=== PATIENT | male | born 1980 | race Caucasian/White ===

== ENCOUNTER 2017-12-24 11:25 | Emergency (ER) | payer MEDICAID ==
[2017-12-24 11:30] VITALS: BP 146/95
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
[2017-12-24] MEDS ORDERED: MECLIZINE 12.5 MG TABLET PO STA (13:51)
[2017-12-24] MEDS ORDERED: AMOXICILLIN 250 MG CAPSULE PO STA (13:51)
[2017-12-24] MEDS ORDERED: DEXAMETHASONE 10 MG/ML VIAL PO STA (13:51)
== END 2017-12-24 14:13 | disposition home or self-care (01) ==
LOC: ED 11:25
DX: H66.92 Otitis media, unspecified, left ear (principal)
CPT/HCPCS: 99283; A9270

== ENCOUNTER 2017-12-25 03:24 | Emergency (ER) | payer MEDICAID ==
[2017-12-25 03:35] VITALS: BP 157/97
[2017-12-25] MEDS ORDERED: HYDROcod/ACET 5/325 Prepack 6 PO STA (03:54)
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
== END 2017-12-25 04:05 | disposition home or self-care (01) ==
LOC: ED 03:24
DX: S02.5XXA Fracture of tooth (traumatic), initial encounter for closed fracture (principal); K08.89 Other specified disorders of teeth and supporting structures
CPT/HCPCS: 99283

== ENCOUNTER 2019-02-23 11:58 | Outpatient (CLI) | payer MEDICAID ==
--- NOTE | 2019-02-23 21:49 | MRI Report ---
Reason: SCIATICA Procedure Date: 02/23/2019 Accession Number: [id number] / [id number] Procedure: MRI - Lumbar Spine W/O CPT Code: FULL RESULT: EXAM: MRI LUMBAR SPINE WITHOUT CONTRAST EXAM DATE: 02/23/2019 12:42 PM. CLINICAL HISTORY: Sciatica. COMPARISON: None. TECHNIQUE: Multiplanar, multisequence T1-weighted and fluid-sensitive sequences of the lumbar spine from T12 to S1 without contrast. Other: None. FINDINGS: Spinal Canal: The conus terminates at L1. The conus medullaris and cauda equina are unremarkable. Alignment: No scoliosis or spondylolisthesis. Bone Marrow: Five [id number] lumbar vertebral bodies are assumed. No gross fractures or bone lesions. No bone marrow replacement. Disk Levels/Facets: T11-T12: Unremarkable. T12-L1: Unremarkable. L1-L2: Unremarkable. L2-L3: Unremarkable. L3-L4: A right foraminal area protrusion causes moderate right foraminal narrowing. There is mass effect on the right L3 nerve root, which is pushed posteriorly within the neural foramina (series 601, image 20). L4-L5: A central posterior disk protrusion projects inferiorly. It measures 1.4 x 0.7 x 1.6 cm. It causes moderate spinal canal, moderate left subarticular zone, and mild bilateral foraminal narrowing. The left L5 nerve root is compressed in the left subarticular zone. L5-S1: The disk is mildly desiccated with moderate height loss. A focal central disk protrusion measures 1.3 x 1.3 x 1.1 cm. This combined with moderate facet hypertrophy causes mild spinal canal, moderate right foraminal and mild left foraminal narrowing. Musculature: Normal. No edema or fatty atrophy. Other: The partially visualized retroperitoneum is unremarkable. IMPRESSION: 1. Moderate right foraminal narrowing at L3-L4 due to disk protrusion. There is mass effect on the right L3 nerve root. 2. Moderate spinal canal, moderate left subarticular zone, and mild bilateral foraminal narrowing at L4-L5 due to disk protrusion. There is mass effect in the left L5 nerve root. 3. Mild spinal canal, moderate right foraminal, and mild left foraminal narrowing at L5-S1 due to disk and posterior element degenerative changes. Comment: The following findings are so common in adults without low back pain that while we report their presence, they must be interpreted with caution and in the context of the clinical situation. (Reference Chrissk et al, Spine 2001) Prevalence of findings in patients without low back pain: Disk degeneration (any evidence): 92% Disk desiccation/T2 signal loss: 83% Disk height loss: 56% Disk bulge: 64% Disk protrusion: 32% Annular tear/high intensity zone: 38% RADIA
== END 2019-02-23 11:59 | disposition home or self-care (01) ==
LOC: DI 11:58
PROVIDERS: ATTEND Physician Assistant Medical
DX: M51.16 Intervertebral disc disorders with radiculopathy, lumbar region (principal)
CPT/HCPCS: 72148

== ENCOUNTER 2019-12-08 17:18 | Emergency (ER) | payer MEDICAID ==
[2019-12-08 18:07] LABS: BASOPHILS # (AUTO) 0.1 10^3/uL (0.0-0.1); BASOPHILS % (AUTO) 1.1 %; EOSINOPHILS # (AUTO) 0.1 10^3/uL (0.0-0.7); EOSINOPHILS % (AUTO) 1.5 %; HGB - HEMOGLOBIN 15.7 g/dL (14.0-18.0); LYMPHOCYTES # (AUTO) 2.9 10^3/uL (1.5-3.5); LYMPHOCYTES % (AUTO) 38.3 %; MEAN CORPUSCULAR HEMOGLOBIN 30.1 pg (27.0-31.0); MEAN CORPUSCULAR HGB CONC 32.9 g/dL (32.0-36.0); MEAN CORPUSCULAR VOLUME 91.6 fL (80.0-94.0); MEAN PLATELET VOLUME 11.3 fL (7.4-11.4); MONOCYTES # (AUTO) 0.7 10^3/uL (0.0-1.0); MONOCYTES % (AUTO) 9.1 %; NEUTROPHILS # (AUTO) 3.7 10^3/uL (1.5-6.6); NEUTROPHILS % (AUTO) 49.3 %; PLT - PLATELET COUNT 226 10^3/uL (130-450); RED BLOOD COUNT 5.21 10^6/uL (4.70-6.10); WHITE BLOOD COUNT 7.4 x10^3/uL (4.8-10.8)
--- NOTE | 2019-12-08 18:07 | ED Physician Documentation ---
PD HPI CHEST PAIN - Stated complaint Stated Complaint: CP/NO VOM OR HEADACHE - Chief complaint Chief Complaint: Cardiac - History obtained from History obtained from: Patient, Family - History of Present Illness Timing - onset: How many days ago (3) Timing - duration: Days (3) Timing - details: Gradual onset Pain level max: 3 Pain level now: 2 Quality: Pressure Location: Left chest Radiation: No: Jaw, Neck, Back, Abdominal, Left upper extremity, Right upper extremity Improved by: Nothing Worsened by: Movement, Palpation Associated symptoms: Cough. No: Shortness of air, Diaphoresis, Nausea, Vomiting, Feeling faint / dizzy, General Weakness, Palpitations - Additional information Additional information: 39-year-old male presents to the emergency department stating he has had several viral illnesses recently with coughing and congestion. 3 days ago started and noticed a dull ache in the left side of his chest. This is been there constantly. Worse with movement, palpation, breathing, coughing. Patient states that he has chronic tachycardia. No recent surgeries. No recent travel. No history of acute coronary syndrome. He saw his doctor today who sent him here for evaluation. Patient does not have any history of cardiac stress test either. Does not smoke. Review of Systems Constitutional: denies: Fever Nose: denies: Rhinorrhea / runny nose, Congestion Cardiac: denies: Palpitations, Calf pain GI: denies: Vomiting Skin: denies: Rash Musculoskeletal: denies: Neck pain, Back pain Neurologic: denies: Focal weakness, Syncope, Headache PD PAST MEDICAL HISTORY - Past Medical History Past Medical History: Yes Cardiovascular: None Respiratory: None Neuro: None Endocrine/Autoimmune: None GI: None : None HEENT: None Psych: Depression Musculoskeletal: Chronic back pain Derm: None - Past Surgical History Past Surgical History: Yes Ortho: Spine surgery - Present Medications Home Medications: Ambulatory Orders Medication Instructions Recorded Confirmed Amoxicillin 500 mg PO TID #20 capsule 12/24/17 Meclizine [Antivert] 25 mg PO Q6H PRN #30 tablet 12/24/17 Tramadol HCl 50 mg PO Q6H PRN #20 tablet 12/24/17 dexAMETHasone [Decadron] 4 mg PO DAILY #5 tablet 12/24/17 - Allergies Allergies/Adverse Reactions: Allergies Allergy/AdvReac Type Severity Reaction Status Date / Time No Known Drug Allergies Allergy Verified 12/08/19 17:26 - Social History Does the pt smoke?: No Smoking Status: Never smoker Does the pt drink ETOH?: No Does the pt have substance abuse?: No - Immunizations Immunizations are current?: Yes - POLST Patient has POLST: No PD ED PE NORMAL - Vitals Vital signs reviewed: Yes - General General: Alert and oriented X 3, No acute distress, Well developed/nourished - HEENT HEENT: Moist mucous membranes - Neck Neck: Supple, no meningeal sign - Cardiac Cardiac: RRR, Strong equal pulses - Respiratory Respiratory: No respiratory distress, Clear bilaterally, Other (Tender to palpation over the left chest wall, this reproduces his pain. No crepitus.) - Abdomen Abdomen: Soft, Non tender, Non distended - Derm Derm: Warm and dry - Extremities Extremities: No edema, No calf tenderness / cord - Neuro Neuro: Alert and oriented X 3, No motor deficit, No sensory deficit - Psych Psych: Normal mood, Normal affect Results - Vitals Vitals: Vital Signs - 24 hr 12/08/19 12/08/19 12/08/19 17:23 17:36 19:22 Temperature 35.9 C L 36.8 C Heart Rate 117 H 90 Respiratory 20 18 Rate Blood Pressure 165/109 H 153/103 H Blood Pressure 142/101 H [Right] O2 Saturation 95 97 Oxygen O2 Source Room air - EKG (time done) 1723 Rate: Rate (enter#) (116) Rhythm: Sinus tachycardia [place]: Normal Intervals: Normal [place] QRS: Normal Ischemia: Normal ST segments, Q waves (V1-2) - Labs Labs: Laboratory Tests 12/08/19 12/08/19 12/08/19 17:57 17:57 17:57 WBC 7.4 RBC 5.21 Hgb 15.7 Hct 47.7 MCV 91.6 MCH 30.1 MCHC 32.9 RDW 13.0 Plt Count 226 MPV 11.3 Neut # (Auto) 3.7 Lymph # (Auto) 2.9 [place] # (Auto) 0.7 Eos # (Auto) 0.1 Baso # (Auto) 0.1 Absolute Nucleated RBC 0.00 Nucleated RBC % 0.0 D-Dimer Sodium 139 Potassium 3.9 Chloride 102 Carbon Dioxide 27 Anion Gap 10.0 BUN 13 Creatinine 0.9 Estimated GFR (MDRD) 94 Glucose 116 H Calcium 9.2 Total Bilirubin 0.6 AST 29 ALT 57 Alkaline Phosphatase 65 Troponin I High Sens 3.9 Total Protein 7.6 Albumin 4.3 Globulin 3.3 Albumin/Globulin Ratio 1.3 Lipase 43 12/08/19 17:57 WBC RBC Hgb Hct MCV MCH MCHC RDW Plt Count MPV Neut # (Auto) Lymph # (Auto) [place] # (Auto) Eos # (Auto) Baso # (Auto) Absolute Nucleated RBC Nucleated RBC % D-Dimer 345.0 H Sodium Potassium Chloride Carbon Dioxide Anion Gap BUN Creatinine Estimated GFR (MDRD) Glucose Calcium Total Bilirubin AST ALT Alkaline Phosphatase Troponin I High Sens Total Protein Albumin Globulin Albumin/Globulin Ratio Lipase - Rads (name of study) Chest x-ray Radiology: Prelim report reviewed, EMP read contemporaneously, See rad report (No acute disease) PD MEDICAL DECISION MAKING - ED course Complexity details: reviewed results, re-evaluated patient, considered differential (No ST elevation NC, no aortic dissection, no PE, no tension pneumothorax, no aortic aneurysm), d/w patient ED course: 39-year-old male presents the emergency department with atypical chest pain. Seems more consistent with a costochondritis. Does have a minimally elevated d- dimer, does not have any risk factors for pulmonary embolus. We will hold off on a CT scan at this time. Doubt PE clinically. No leg swelling. No leg pain. No recent travel. No pleuritic chest pain. Negative troponin. Patient counseled regarding signs and symptoms for which I believe and urgent re- evaluation would be necessary. Patient with good understanding of and agreement to plan and is comfortable going home at this time This document was made in part using voice recognition software. While efforts are made to proofread this document, sound alike and grammatical errors may occur. Departure - Departure Disposition: Home, Self Care Clinical Impression: Chest wall pain Condition: Good Instructions: ED Chest Pain NonCardiac Follow-Up: Migue Navarro PA-C [Primary Care Provider] - Within 1 week Comments: Follow-up with your doctor for further care. This should improve over the next week or so. Return if you worsen. Discharge Date/Time: 12/08/19 19:23
--- NOTE | 2019-12-08 18:17 | XRAY Report ---
Reason: Chest Pain Procedure Date: 12/08/2019 Accession Number: [id number] / [id number] Procedure: XR - Chest 1 View X-Ray CPT Code: 16102 Final Report FULL RESULT: EXAM: CHEST RADIOGRAPHY EXAM DATE: 12/08/2019 05:45 PM. CLINICAL HISTORY: Chest pain. COMPARISON: XR CHEST PA AND LAT 10/01/2011 9:59 PM. TECHNIQUE: 1 view. FINDINGS: Lungs/Pleura: No focal opacities evident. No pleural effusion. No pneumothorax. Mediastinum: Within exam limitations, the cardiomediastinal contour is normal. Other: None. IMPRESSION: Normal single view chest. RADIA
[2019-12-08 18:24] LABS: ALBUMIN 4.3 g/dL (3.2-5.5); ALBUMIN/GLOBULIN RATIO 1.3 (1.0-2.2); BILIRUBIN,TOTAL 0.6 mg/dL (0.2-1.0); CALCIUM 9.2 mg/dL (8.5-10.3); CREATININE 0.9 mg/dL (0.6-1.2); TOTAL PROTEIN 7.6 g/dL (6.7-8.2)
[2019-12-08 19:23] VITALS: BP 153/103
--- NOTE | 2019-12-14 15:23 | ED Physician Documentation ---
ED Addendum - Addendum Addendum: 12/14/19 15:23 Patient presented to the emergency department stating he needed a work note to go back to work. He is fine he says, no complaints. A note stating that he could go back to work was written.
== END 2019-12-08 19:23 | disposition home or self-care (01) ==
LOC: ED 17:18
DX: R07.89 Other chest pain (principal); R00.0 Tachycardia, unspecified
CPT/HCPCS: 36415; 71045; 80053; 83690; 84484; 85025; 85379; 93005; 99284

== ENCOUNTER 2020-02-21 00:44 | Emergency (ER) | payer MEDICAID ==
--- NOTE | 2020-02-21 00:52 | ED Physician Documentation ---
History of Present Illness - Stated complaint Stated Complaint: R LEG PX - History obtained from History obtained from: Patient (the patient is a 39 y/o m who p/w right knee pain. denies fevers. denies any hx of IVDA, denies any previous surgeries to his right lower extremity. reports he can walk but it hurts. denies any hx of septic joint or gout.) Review of Systems Constitutional: reports: Reviewed and negative Eyes: reports: Reviewed and negative Ears: reports: Reviewed and negative Nose: reports: Reviewed and negative Throat: reports: Reviewed and negative Cardiac: reports: Reviewed and negative Respiratory: reports: Reviewed and negative GI: reports: Reviewed and negative : reports: Reviewed and negative Skin: reports: Reviewed and negative Musculoskeletal: reports: Other (right knee pain) Neurologic: reports: Reviewed and negative Psychiatric: reports: Reviewed and negative Endocrine: reports: Reviewed and negative Immunocompromised: reports: Reviewed and negative PD PAST MEDICAL HISTORY - Past Medical History Cardiovascular: None Respiratory: None Neuro: None Endocrine/Autoimmune: None GI: None : None HEENT: None Psych: Depression Musculoskeletal: Chronic back pain Derm: None - Past Surgical History Past Surgical History: Yes Ortho: Spine surgery - Present Medications Home Medications: Ambulatory Orders Medication Instructions Recorded Confirmed No Known Home Medications 02/21/20 02/21/20 - Allergies Allergies/Adverse Reactions: Allergies Allergy/AdvReac Type Severity Reaction Status Date / Time No Known Drug Allergies Allergy Verified 02/21/20 00:53 - Social History Does the pt smoke?: No Smoking Status: Never smoker Does the pt drink ETOH?: No Does the pt have substance abuse?: No - Immunizations Immunizations are current?: Yes - POLST Patient has POLST: No PD ED PE NORMAL - Vitals Vital signs reviewed: Yes - General General: Alert and oriented X 3, No acute distress, Well developed/nourished - HEENT HEENT: Atraumatic, PERRL - Neck Neck: Supple, no meningeal sign - Cardiac Cardiac: RRR, No murmur, Strong equal pulses - Respiratory Respiratory: No respiratory distress, Clear bilaterally - Abdomen Abdomen: Normal bowel sounds, Soft, Non tender, Non distended - Derm Derm: Warm and dry - Extremities Extremities: No deformity, No edema, No calf tenderness / cord, Other (The right lower extremity shows no gross deformity whatsoever there is no joint effusion there is no ballottement there is no instability on anterior posterior draw there is no decreased range of motion there is no swelling there is no ecchymosis he has palpable DP and PT pulses compartments are soft he is neurovascularly intact sensations intact light touch. There is no gross deformity the patient's able to passive and actively flex and extend at the knee as well as flex and extend at the hip he is able to bear weight on his heels and his toes.) - Neuro Neuro: Alert and oriented X 3 - Psych Psych: Normal mood, Normal affect Results - Vitals Vitals: Vital Signs - 24 hr 02/21/20 00:45 Temperature 37.1 C Heart Rate 105 H Respiratory 18 Rate Blood Pressure 159/114 H O2 Saturation 97 Oxygen O2 Source Room air PD MEDICAL DECISION MAKING - ED course Complexity details: re-evaluated patient (patient updated, on reval, patient is asking for note to excuse him from work, patient also states that 2 days ago he was playing basketball and felt a twist in his knee. ), considered differential (hx and exam are unremarkable. no gross deformity on exam. no red flags on hx or exam to suggest septic joint. hx and exam are consistent with PFS. ) Departure - Departure Disposition: 01 Home, Self Care Clinical Impression: PFS (patellofemoral syndrome) Qualifiers: Laterality: right Qualified Code(s): M22.2X1 - Patellofemoral disorders, right knee Condition: Stable Instructions: Kneecap Probs Common Follow-Up: Migue Navarro PA-C [Primary Care Provider] - Comments: use crutches as needed, use knee brace as needed, ice several times daily, keep knee elevated, call your pcp to schedule follow up.
[2020-02-21 00:53] VITALS: BP 159/114
[2020-02-21] MEDS ORDERED: KETOROLAC 30 MG/ML VIAL IM STA (00:54)
--- NOTE | 2020-02-21 01:18 | XRAY Report ---
Reason: pain Procedure Date: 02/21/2020 Accession Number: [id number] / [id number] Procedure: XR - Knee 3 View RT CPT Code: Final Report FULL RESULT: EXAM: RIGHT KNEE RADIOGRAPHY EXAM DATE: 02/21/2020 12:47 AM. CLINICAL HISTORY: Pain. COMPARISON: None. TECHNIQUE: 3 views. FINDINGS: Bones: Normal. No fractures or bone lesions. Joints: Normal. No effusion. No subluxations. Soft Tissues: Normal. No soft tissue swelling. IMPRESSION: Normal knee radiography. RADIA
== END 2020-02-21 01:32 | disposition home or self-care (01) ==
LOC: ED 00:44
DX: M22.2X1 Patellofemoral disorders, right knee (principal)
CPT/HCPCS: 96372; 99283; 99284

== ENCOUNTER 2020-11-24 18:38 | Outpatient (CLI) | payer MEDICAID | END 2020-11-24 18:39 | disposition home or self-care (01) | LOC: COV 18:38 | PROVIDERS: ATTEND Family Medicine | DX: J02.9 Acute pharyngitis, unspecified (principal); Z20.822 Contact with and (suspected) exposure to COVID-19 ==

== ENCOUNTER 2021-03-12 14:23 | Emergency (ER) | payer MEDICAID ==
[2021-03-12] MEDS ORDERED: HYDROcod/ACETAM 5/325 MG TABLET PO STA (14:40)
[2021-03-12] MEDS ORDERED: PENICILLIN VK 250 MG TABLET PO STA (14:40)
--- NOTE | 2021-03-12 14:41 | ED Physician Documentation ---
History of Present Illness - Stated complaint Stated Complaint: TOOTH PX - Chief complaint Chief Complaint: Heent - History obtained from History obtained from: Patient (40-year-old gentleman with 2 days of dental pain from her right mandibular molar. Last dental appointment was about a year and a half ago. No fevers. No facial swelling.) Review of Systems Constitutional: reports: Reviewed and negative Nose: reports: Reviewed and negative Throat: reports: Reviewed and negative PD PAST MEDICAL HISTORY - Past Medical History Past Medical History: Yes Cardiovascular: None Respiratory: None Neuro: None Endocrine/Autoimmune: None GI: None : None HEENT: None Psych: Depression Musculoskeletal: Chronic back pain Derm: None - Past Surgical History Past Surgical History: Yes Ortho: Spine surgery - Present Medications Home Medications: Ambulatory Orders Medication Instructions Recorded Confirmed HYDROcod/ACETAM 5/325 [[place] 5/325] 1 - 2 tab PO Q6H PRN #15 tablet 03/12/21 Ibuprofen [Motrin] 800 mg PO Q8H PRN #30 tablet 03/12/21 Penicillin V Potassium 500 mg PO Q6HR #40 tablet 03/12/21 - Allergies Allergies/Adverse Reactions: Allergies Allergy/AdvReac Type Severity Reaction Status Date / Time No Known Drug Allergies Allergy Verified 03/12/21 14:34 - Social History Does the pt smoke?: No Smoking Status: Never smoker Does the pt drink ETOH?: No Does the pt have substance abuse?: No - Immunizations Immunizations are current?: Yes - POLST Patient has POLST: No PD ED PE NORMAL - Vitals Vital signs reviewed: Yes - General General: Alert and oriented X 3, No acute distress - HEENT HEENT: Other (There is a small cavity in the last right molar which is tender without facial swelling, trismus, sublingual edema.) - Neck Neck: Supple, no meningeal sign, No bony TTP - Neuro Neuro: Alert and oriented X 3, Normal speech Results - Vitals Vitals: Vital Signs - 24 hr 03/12/21 14:30 Temperature 36.9 C Heart Rate 110 H Respiratory 18 Rate Blood Pressure 149/102 H O2 Saturation 97 Oxygen O2 Source Room air Departure - Departure Disposition: 01 Home, Self Care Clinical Impression: Pain, dental, Pain due to dental caries Condition: Good Record reviewed to determine appropriate education?: Yes Instructions: ED Tooth Pain Prescriptions: Penicillin V Potassium 500 mg PO Q6HR #40 tablet Ibuprofen [Motrin] 800 mg PO Q8H PRN #30 tablet PRN Reason: PAIN &/OR FEVER HYDROcod/ACETAM 5/325 [[place] 5/325] 1 - 2 tab PO Q6H PRN #15 tablet PRN Reason: Pain Comments: It is very important that you follow-up with a dentist. When it comes to dental problems like yours, the emergency department can only offer a short-term solution to your long-term problem. A couple of low cost options for dental care include: [facility] in [place], calls [phone] for an appointment Or [facility] in [place], call [phone] for an appointment.
[2021-03-12 15:03] VITALS: BP 138/102
== END 2021-03-12 15:03 | disposition home or self-care (01) ==
LOC: ED 14:23
DX: K02.9 Dental caries, unspecified (principal)
CPT/HCPCS: 99282; 99283; A9270

== ENCOUNTER 2021-10-31 08:00 | Outpatient (CLI) | payer MEDICAID | END 2021-10-31 23:59 | disposition home or self-care (01) | LOC: LAB.WCP 08:00 | PROVIDERS: ATTEND Family Medicine | DX: J02.9 Acute pharyngitis, unspecified (principal); Z20.822 Contact with and (suspected) exposure to COVID-19 | CPT/HCPCS: 87070; 87275; 87276 ==

== ENCOUNTER 2021-12-13 08:00 | Outpatient (CLI) | payer MEDICAID | END 2021-12-13 23:59 | LOC: LAB.N 08:00 | PROVIDERS: ATTEND Family Medicine | DX: U07.1 COVID-19 (principal) ==

== ENCOUNTER 2021-12-21 00:38 | Emergency (ER) | payer MEDICAID ==
[2021-12-21] MEDS ORDERED: ACETAMINOPHEN 325 MG TABLET PO STA (01:12)
--- NOTE | 2021-12-21 01:39 | XRAY Report ---
PROCEDURE: Chest 1 View X-Ray INDICATIONS: Covid + one week ago. SOA. Cough. COMMENTS: Covid + one week ago. Cough. Study sen t jing Mendoza for read. PRIORS: Prior 12/08/19 TECHNIQUE: One view of the chest was acquired. COMPARISON: 12/08/2019 FINDINGS: Surgical changes and devices: None. Lungs and pleura: No pleural effusions or pneumothorax. Diffuse bilateral subtle peripheral airsp isaac opacities consistent with history of Covid 19. Mediastinum: Mediastinal contours appear normal. Heart size is normal. Bones and chest wall: No suspicious bony lesions. Overlying soft tissues appear unremarkable. IMPRESSION: Diffuse bilateral peripheral airspace opacities consistent with Covid. Reviewed by: Mart Ferguson on 12/21/2021 1:39 AM [facility] Approved by: Mart Ferguson on 12/21/2021 1:39 AM [facility] Station ID: [id number]
[2021-12-21] MEDS ORDERED: SODIUM CHLORIDE 0.9% 500 ML IV STA (02:48)
[2021-12-21 03:55] LABS: BASOPHILS % (AUTO) 0.4 %; EOSINOPHILS # (AUTO) 0.1 10^3/uL (0.0-0.7); EOSINOPHILS % (AUTO) 0.8 %; HCT - HEMATOCRIT 44.1 % (42.0-52.0); HGB - HEMOGLOBIN 14.7 g/dL (14.0-18.0); LYMPHOCYTES # (AUTO) 2.5 10^3/uL (1.5-3.5); LYMPHOCYTES % (AUTO) 32.6 %; MEAN CORPUSCULAR HEMOGLOBIN 29.9 pg (27.0-31.0); MEAN CORPUSCULAR HGB CONC 33.3 g/dL (32.0-36.0); MEAN CORPUSCULAR VOLUME 89.8 fL (80.0-94.0); MEAN PLATELET VOLUME 11.6 fL (7.4-11.4); MONOCYTES # (AUTO) 0.6 10^3/uL (0.0-1.0); MONOCYTES % (AUTO) 7.1 %; NEUTROPHILS # (AUTO) 4.6 10^3/uL (1.5-6.6); NEUTROPHILS % (AUTO) 58.6 %; PLT - PLATELET COUNT 183 10^3/uL (130-450); RED BLOOD COUNT 4.91 10^6/uL (4.70-6.10); RED CELL DISTRIBUTION WIDTH 12.4 % (12.0-15.0); WHITE BLOOD COUNT 7.8 x10^3/uL (4.8-10.8)
[2021-12-21 03:56] LABS: VBG BASE EXCESS 0.9 mmol/L (-2 - +2); VBG HCO3 25.4 mmol/L (23-28); VBG OXYGEN SATURATION 91.1 % (60-80); VBG PCO2 39.9 mmHg (41-51); VBG PH 7.421 (7.31-7.41); VBG PO2 56.6 mmHg (25-47); VBG TOTAL CO2 26.6 mmol/L (24-29)
[2021-12-21 04:08] LABS: ALBUMIN 3.3 g/dL (3.2-5.5); ALBUMIN/GLOBULIN RATIO 0.9 (1.0-2.2); BILIRUBIN,TOTAL 0.4 mg/dL (0.2-1.0); CALCIUM 8.5 mg/dL (8.5-10.3); CREATININE 0.7 mg/dL (0.6-1.2); POTASSIUM 3.7 mmol/L (3.5-5.0); TOTAL PROTEIN 7.1 g/dL (6.7-8.2)
[2021-12-21] MEDS ORDERED: SODIUM CHLORIDE 0.9% 1,000 ML IV STA (05:02)
[2021-12-21] MEDS ORDERED: IOVERSOL 320 100 ML VIAL IVP ONE ×3 (05:17→06:05)
[2021-12-21 06:43] VITALS: BP 135/84
--- NOTE | 2021-12-21 06:44 | ED Physician Documentation ---
History of Present Illness - Stated complaint Stated Complaint: SOA - Chief complaint Chief Complaint: Resp - History obtained from History obtained from: Patient - Additonal information Additional information: 41yM with recent diagnosis of covid-19 p/w soa a/w cough progressively worsening over the past couple days. patient had n/v/d about 5 days ago that has now resolved. denies cp except with cough. denies hemoptysis or leg swelling. Review of Systems Ten Systems: 10 systems reviewed and negative Constitutional: reports: Chills, Myalgias, Fatigue Cardiac: reports: Chest pain / pressure Respiratory: reports: Dyspnea, Cough PD PAST MEDICAL HISTORY - Past Medical History Past Medical History: Yes Cardiovascular: None Respiratory: None Neuro: None Endocrine/Autoimmune: None GI: None : None HEENT: None Psych: Depression Musculoskeletal: Chronic back pain Derm: None - Past Surgical History Past Surgical History: Yes Ortho: Spine surgery - Present Medications Home Medications: Ambulatory Orders Medication Instructions Recorded Confirmed HYDROcod/ACETAM 5/325 [[place] 5/325] 1 - 2 tab PO Q6H PRN #15 tablet 03/12/21 Ibuprofen [Motrin] 800 mg PO Q8H PRN #30 tablet 03/12/21 Penicillin V Potassium 500 mg PO Q6HR #40 tablet 03/12/21 - Allergies Allergies/Adverse Reactions: Allergies Allergy/AdvReac Type Severity Reaction Status Date / Time No Known Drug Allergies Allergy Verified 12/21/21 00:51 - Social History Does the pt smoke?: No Smoking Status: Never smoker Does the pt drink ETOH?: No Does the pt have substance abuse?: No - Immunizations Immunizations are current?: Yes - POLST Patient has POLST: No PD ED PE NORMAL - Vitals Vital signs reviewed: Yes - General General: Alert and oriented X 3, No acute distress, Well developed/nourished - HEENT HEENT: Atraumatic, PERRL, EOMI - Neck Neck: Supple, no meningeal sign - Cardiac Cardiac: Other (borderline tachycardic rate, regular rhythm) - Respiratory Respiratory: No respiratory distress, Clear bilaterally - Abdomen Abdomen: Non tender, Non distended - Derm Derm: Normal color, Warm and dry - Extremities Extremities: No deformity, No edema - Neuro Neuro: No motor deficit, No sensory deficit - Psych Psych: Normal mood, Normal affect Results - Vitals Vitals: Vital Signs - 24 hr 12/21/21 12/21/21 12/21/21 00:46 02:43 04:00 Temperature 35.8 C L 36.4 C L Heart Rate 123 H 119 H 108 H Respiratory 16 22 21 Rate Blood Pressure 151/92 H 130/95 H 127/88 H O2 Saturation 96 96 96 Oxygen O2 Source Room air - EKG (time done) 0257 Rate: Rate (enter#) (123) Rhythm: Sinus tachycardia - Labs Labs: Laboratory Tests 12/21/21 12/21/21 12/21/21 03:48 03:48 03:48 WBC 7.8 RBC 4.91 Hgb 14.7 Hct 44.1 MCV 89.8 MCH 29.9 MCHC 33.3 RDW 12.4 Plt Count 183 MPV 11.6 H Neut # (Auto) 4.6 Lymph # (Auto) 2.5 [place] # (Auto) 0.6 Eos # (Auto) 0.1 Baso # (Auto) 0.0 Absolute Nucleated RBC 0.00 Nucleated RBC % 0.0 D-Dimer 332.9 H VBG pH VBG pCO2 VBG pO2 VBG HCO3 VBG Total CO2 VBG O2 Saturation VBG Base Excess Sodium 138 Potassium 3.7 Chloride 102 Carbon Dioxide 25 Anion Gap 11.0 BUN 11 Creatinine 0.7 Estimated GFR (MDRD) 125 Glucose 237 H Calcium 8.5 Total Bilirubin 0.4 AST 23 ALT 38 Alkaline Phosphatase 54 Total Protein 7.1 Albumin 3.3 Globulin 3.8 Albumin/Globulin Ratio 0.9 L Lipase 38 12/21/21 03:48 WBC RBC Hgb Hct MCV MCH MCHC RDW Plt Count MPV Neut # (Auto) Lymph # (Auto) [place] # (Auto) Eos # (Auto) Baso # (Auto) Absolute Nucleated RBC Nucleated RBC % D-Dimer VBG pH 7.421 H VBG pCO2 39.9 L VBG pO2 56.6 H VBG HCO3 25.4 VBG Total CO2 26.6 VBG O2 Saturation 91.1 H VBG Base Excess 0.9 Sodium Potassium Chloride Carbon Dioxide Anion Gap BUN Creatinine Estimated GFR (MDRD) Glucose Calcium Total Bilirubin AST ALT Alkaline Phosphatase Total Protein Albumin Globulin Albumin/Globulin Ratio Lipase PD MEDICAL DECISION MAKING - ED course ED course: 41yM p/w s/s c/w covid 19. PE study negative. vbg benign and he has been maintaining his sats in the ED. return precautions given. plan to f/u with pmd via telehealth. Departure - Departure Disposition: 01 Home, Self Care Clinical Impression: COVID-19 Condition: Stable Instructions: COVID-19 [facility], COVID-19 [facility] Department Statement Comments: You were seen in the ED for symptoms related to covid-19. Your labs looked okay except for some mild high blood sugar that should be rechecked when you're feeling better. Your CT showed no blood clots in the lung, but you do have some lung disease related to covid. Please follow up with your primary doctor via telehealth. return to the ED if you have new or worsening symptoms or other concerns.
--- NOTE | 2021-12-21 09:55 | CT Report ---
PROCEDURE: ANGIO CHEST W/WO INDICATIONS: covid+, soa, r/o PE CONTRAST: IV CONTRAST: Optiray 320 ml: 80 PO CONTRAST: *NO PO CONTRAST TECHNIQUE: After the administration of intravenous contrast, 2 mm axial images were acquired from the pulmonary apices to the posterior costophrenic angles during the arterial phase. In addition, 1 mm lung kernel and 5 mm soft tissue kernel reconstructions were performed. 3-dimensional coronal oblique maximum int ensity projection (MIP) reformats, 8 mm axial MIP, and 5 mm coronal and sagittal MPR reformats were t hen performed through the thorax. For radiation dose reduction, the following was used: automated exp osure control, adjustment of mA and/or kV according to patient size. COMPARISON: Chest x-ray 12/21/2021 FINDINGS: Image quality: There is adequate opacification of the main pulmonary arteries. There is suboptimal ev aluation secondary to contrast injection timing of the segmental branches. Pulmonary arteries: Pulmonary arteries are normal in size, and demonstrate no intraluminal filling d efects to suggest central pulmonary embolism. Lungs and pleura: Multifocal areas of patchy and confluent bilateral pulmonary opacities are present. No pleural effusions or pneumothorax. Central and peripheral airways are patent. Mediastinum: Heart size is normal, without pericardial effusion. No mediastinal or hilar adenopathy . Thoracic aorta is normal in caliber and enhancement. Esophagus is normal in caliber, without hiat al hernia. Bones and chest wall: No suspicious bony lesions. Ribs and thoracic spine appear intact throughout. No axillary or supraclavicular adenopathy. The thyroid is normal in size and there are no incident al findings. Abdomen: Hepatic steatosis is present. Otherwise, visualized upper abdominal solid organs appear nor mal in the early arterial phase of enhancement. IMPRESSION: No central pulmonary embolus. As noted above, there is limited visualization of distal branches and s mall areas of emboli cannot be excluded. Multifocal areas of bilateral patchy and confluent pulmonary opacities most consistent with pneumonia . The above findings are concordant with preliminary report. CLINICAL RECOMMENDATION STATEMENTS: In patients <35 years with an ITN detected on CT, MRI, or extrathyroidal ultrasound, the Committee re commends further evaluation with dedicated thyroid ultrasound if the nodule is "e1 cm and has no susp icious imaging features, and if the patient has normal life expectancy. In patients "e35 years with an ITN detected on CT, MRI, or extrathyroidal ultrasound, the Committee r ecommends further evaluation with dedicated thyroid ultrasound if the nodule is "e1.5 cm and has no s uspicious imaging features, and if the patient has normal life expectancy. (ACR, 2014) Reviewed by: Samantha Rich MD on 12/21/2021 9:53 AM PST Approved by: Samantha Rich MD on 12/21/2021 9:53 AM PST Station ID: [id number]
== END 2021-12-21 07:04 | disposition home or self-care (01) ==
LOC: ED 00:38
DX: U07.1 COVID-19 (principal)
CPT/HCPCS: 36415; 71045; 71275; 80053; 82803; 83690; 85025; 85379; 87635; 93005; 99283; 99284; A9270; Q9967

== ENCOUNTER 2022-01-25 09:24 | Outpatient (CLI) | payer MEDICAID ==
--- NOTE | 2022-01-25 11:40 | Ultrasound Report ---
PROCEDURE: Testicle INDICATIONS: LEFT TESTICULAR PAIN TECHNIQUE: Real-time scanning was performed of the scrotum and testicles, with image documentation. Color and p ulse Doppler interrogation was performed of both testicles. COMPARISON: None. FINDINGS: Right: Testicle is normal in size at 4.6 x 2.4 x 2 point cm, and homogenous in echotexture. Epididy mis is normal in overall size and morphology. No hydrocele or varicoceles. Overlying scrotal skin i s normal in thickness. Left: Testicle is normal in size at 4.2 x 2.2 x 3.2 cm, and homogeneous in echotexture. Epididymis is normal in overall size and morphology. No hydrocele or varicoceles. Overlying scrotal skin is no rmal in thickness. Doppler: Color and pulse Doppler demonstrate normal and symmetric arterial flow in both testicles. IMPRESSION: Normal testicular ultrasound. Reviewed by: Mart Ferguson on 01/25/2022 11:39 AM PDT Approved by: Mart Ferguson on 01/25/2022 11:39 AM PDT Station ID: [id number]
== END 2022-01-25 09:25 | disposition home or self-care (01) ==
LOC: DI 09:24
PROVIDERS: ATTEND Internal Medicine
DX: N50.812 Left testicular pain (principal)

== ENCOUNTER 2022-11-09 10:19 | Outpatient (CLI) | payer MEDICAID ==
[2022-11-09 18:26] LABS: BASOPHILS # (AUTO) 0.1 10^3/uL (0.0-0.1); BASOPHILS % (AUTO) 0.9 %; EOSINOPHILS # (AUTO) 0.1 10^3/uL (0.0-0.7); EOSINOPHILS % (AUTO) 1.7 %; HCT - HEMATOCRIT 50.4 % (42.0-52.0); HGB - HEMOGLOBIN 16.1 g/dL (14.0-18.0); LYMPHOCYTES # (AUTO) 3.1 10^3/uL (1.5-3.5); LYMPHOCYTES % (AUTO) 47.6 %; MEAN CORPUSCULAR HGB CONC 31.9 g/dL (32.0-36.0); MEAN CORPUSCULAR VOLUME 90.6 fL (80.0-94.0); MONOCYTES # (AUTO) 0.5 10^3/uL (0.0-1.0); MONOCYTES % (AUTO) 7.3 %; NEUTROPHILS # (AUTO) 2.8 10^3/uL (1.5-6.6); NEUTROPHILS % (AUTO) 41.9 %; PLT - PLATELET COUNT 207 10^3/uL (130-450); RED BLOOD COUNT 5.56 10^6/uL (4.70-6.10); RED CELL DISTRIBUTION WIDTH 13.1 % (12.0-15.0); WHITE BLOOD COUNT 6.6 x10^3/uL (4.8-10.8)
[2022-11-09 18:36] LABS: BILIRUBIN,URINE NEGATIVE (NEGATIVE); GLUCOSE, URINE (UA) NEGATIVE (NEGATIVE); KETONES,URINE (UA) NEGATIVE (NEGATIVE); LEUKOCYTE ESTERASE, URINE NEGATIVE (NEGATIVE); NITRITE,URINE NEGATIVE (NEGATIVE); OCCULT BLOOD,URINE NEGATIVE (NEGATIVE); PROTEIN,URINE NEGATIVE (NEGATIVE); UROBILINOGEN,URINE 0.2 (NORMAL) E.U./dL (NORMAL)
[2022-11-09 18:38] LABS: CLARITY,URINE CLOUDY (CLEAR)
[2022-11-09 18:42] LABS: CALCIUM 9.5 mg/dL (8.5-10.3); CARBON DIOXIDE - CO2 29 mmol/L (21-32); CHLORIDE 102 mmol/L (101-111); GLUCOSE 188 mg/dL (70-100); POTASSIUM 4.3 mmol/L (3.5-5.0); SODIUM 139 mmol/L (135-145)
[2022-11-09 18:49] LABS: AMORPHOUS SEDIMENT,UR Marked /LPF; BACTERIA,URINE None Seen /HPF (None Seen); RBC,URINE None Seen /HPF (0-5); SQUAMOUS EPITHELIAL CELL,UR NONE SEEN (<= Few); WBC,URINE 0-3 /HPF (0-3)
[2022-11-09 19:01] LABS: THYROID STIMULATING HORMONE 3.39 uIU/mL (0.34-5.60)
[2022-11-09 19:37] LABS: ALBUMIN 4.2 g/dL (3.2-5.5); ALBUMIN/GLOBULIN RATIO 1.2 (1.0-2.2); ALKALINE PHOSPHATASE 80 IU/L (42-121); ALT ALANINE AMINOTRANSFERASE 41 IU/L (10-60); AST ASPARTATE AMINOTRANSFERASE 23 IU/L (10-42); BILIRUBIN,TOTAL 0.7 mg/dL (0.2-1.0); BUN - BLOOD UREA NITROGEN 15 mg/dL (6-20); CHOL/HDL RATIO 7.4 (<5.0); CHOLESTEROL 266 mg/dL; GFR - MDRD 82 (>89); HDL CHOLESTEROL 36 mg/dL; LDL CHOLESTEROL,CALCULATED 161 mg/dL; LDL CHOLESTEROL,DIRECT 144 mg/dL; LDL/HDL RATIO 4.5 (<3.6); TOTAL PROTEIN 7.8 g/dL (6.7-8.2); TRIGLYCERIDES 345 mg/dL; VLDL CHOLESTEROL 69 mg/dL
[2022-11-09 21:27] LABS: CREATININE,URINE 251.9 mg/dL; MICROALBUM/CREATININE RATIO,UR 19.5 ug/mg (<30.0); MICROALBUMIN,URINE 4.9 mg/dL (0-300.0)
[2022-11-09 22:24] LABS: ESTIMATED AVERAGE GLUCOSE 235 mg/dL (70-100); HEMOGLOBIN A1c% 9.8 % (4.27-6.07)
[2022-11-10 00:09] LABS: CHLAMYDIA TRACHOMATIS DNA NEGATIVE (NEGATIVE); NEISSERIA GONORRHOEAE DNA NEGATIVE (NEGATIVE)
== END 2022-11-09 10:20 | disposition home or self-care (01) ==
LOC: LAB.N 10:19
PROVIDERS: ATTEND Internal Medicine
DX: E11.9 Type 2 diabetes mellitus without complications (principal); E78.1 Pure hyperglyceridemia; N50.819 Testicular pain, unspecified; F41.1 Generalized anxiety disorder
CPT/HCPCS: 36415; 80053; 80061; 81001; 81003; 82043; 82570; 83036; 83721; 84443; 85025; 87086; 87491; 87591; 87661

== ENCOUNTER 2023-10-05 20:25 | Emergency (ER) | payer MEDICAID ==
--- NOTE | 2023-10-05 20:36 | ED Physician Documentation ---
PD HPI NVD - Stated complaint Stated Complaint: NAUSEA - Chief complaint Chief Complaint: Cardiac - History obtained from History obtained from: Patient - Additonal information Additional information: HPI from patient. Patient says that a few days ago, while at rest working on his computer, he had an episode of palpitations with sensation of skipped beats. He had not had this symptom in the past nor has he had it since the episode few days ago. He denies chest pain, shortness of breath, lightheadedness. He checked his heart rate on his watch and, according to the watch, his heart rate was in the 50s; he remarks that this is unusual, as his usual resting heart rate (per patient) is in the 100-110s range. Since the episode of palpitations, he has had episodic nausea without apparent inciting, exacerbating, nor ameliorating factors. Patient is a dca-cjynyrj-ykgokdwgs diabetic. He notes that he has not taken his diabetic medication for several weeks now due to side effects. Review of Systems Constitutional: reports: Reviewed and negative Cardiac: reports: Palpitations. denies: Chest pain / pressure, Pedal edema, Calf pain Respiratory: denies: Dyspnea GI: reports: Nausea. denies: Abdominal Pain, Vomiting Endocrine: denies: Polydypsia, Polyuria PD PAST MEDICAL HISTORY - Past Medical History Past Medical History: Yes Cardiovascular: Hypertension Respiratory: None Neuro: None Endocrine/Autoimmune: Type 2 diabetes GI: GERD : None HEENT: None Psych: Depression, Anxiety Musculoskeletal: Chronic back pain Derm: None - Past Surgical History Past Surgical History: Yes Ortho: Spine surgery - Present Medications Home Medications: Ambulatory Orders Medication Instructions Recorded Confirmed Glimepiride [Amaryl] 4 mg PO DAILY 06/20/22 06/20/22 Omeprazole Magnesium 20 mg PO DAILY 06/20/22 06/20/22 metFORMIN [Glucophage] 1,500 mg PO DAILY 06/20/22 06/20/22 Ondansetron Odt [Zofran Odt] 4 mg TL Q6H PRN #14 tablet 10/05/23 - Allergies Allergies/Adverse Reactions: Allergies Allergy/AdvReac Type Severity Reaction Status Date / Time No Known Drug Allergies Allergy Verified 10/05/23 20:29 - Social History Does the pt smoke?: No Smoking Status: Never smoker Does the pt drink ETOH?: No Does the pt have substance abuse?: No - Immunizations Immunizations are current?: Yes - POLST Patient has POLST: No PD ED PE NORMAL - Vitals Vital signs reviewed: Yes - General General: Alert and oriented X 3, No acute distress, Well developed/nourished - HEENT HEENT: Moist mucous membranes - Cardiac Cardiac: No murmur - Respiratory Respiratory: No respiratory distress, Clear bilaterally PD ED PE EXPANDED - Cardiac Cardiac: Tachy, Regular Rhythm Results - Vitals Vitals: Vital Signs - 24 hr 10/05/23 10/05/23 10/05/23 20:29 20:55 22:32 Temperature 36.8 C 36.5 C Heart Rate 114 H 80 80 Respiratory 16 18 16 Rate Blood Pressure 170/90 H 141/105 H 128/88 H O2 Saturation 100 95 96 Oxygen O2 Source Room air - EKG (time done) No standard instances EKG releavant findings:: EKG personally interpreted by author of this note. Relevant findings are: Rate: Rate (enter#) (101) Rhythm: Sinus tachycardia [place]: Normal Intervals: Normal [place] QRS: Normal Ischemia: Q waves (V1-V3), Other (questionable ST elevation isolated to V2) Compare to prior EKG: Unchanged from prior EKG (Q waves in V1, V2 on previous EKG (12/21/21)) - Labs Labs: Laboratory Tests 10/05/23 10/05/23 10/05/23 21:15 21:15 21:15 WBC 7.5 RBC 5.32 Hgb 15.7 Hct 49.1 MCV 92.3 MCH 29.5 MCHC 32.0 RDW 12.6 Plt Count 218 MPV 11.7 H Neut # (Auto) 4.4 Lymph # (Auto) 2.4 [place] # (Auto) 0.5 Eos # (Auto) 0.1 Baso # (Auto) 0.1 Absolute Nucleated RBC 0.00 Nucleated RBC % 0.0 Sodium 137 Potassium 3.8 Chloride 103 Carbon Dioxide 26 Anion Gap 8.0 BUN 18 Creatinine 1.0 Estimated GFR (MDRD) 82 L Glucose 242 H Lactic Acid 1.2 Calcium 9.3 PD Medical Decision Making - ED course Complexity details: reviewed results, re-evaluated patient, considered differential, d/w patient ED course: Patient presents with chief complaint of episodes of nausea for the past few days. The onset of the nausea was associated with an episode of "skipped beat" palpitations which have not reoccurred since then. No concerning or diagnostic findings on CBC. Basic metabolic profile is notable for hyperglycemia (242 glucose) but otherwise no remarkable findings. The patient is a uiu-kbltgav-etqgpqkcd diabetic and says that he has not been taking his diabetic medication for at least a few weeks due to side effects. EKG demonstrates Q waves in V1 through V3. There is questionable ST elevation in V2; however, no ST changes in any other leads (lack of ST changes in two or more contiguous leads is reassuring).I do note Q waves V1 and V2 on previous EKG, as well. Patient is given 4 mg TL Zofran and reports improvement in his nausea with this intervention. Results discussed with patient. Return precautions are reviewed. I emphasized the need to follow-up with primary care provider for reevaluation of his symptoms, his hyperglycemia and consideration of medications to treat this that are not causing side effects, and EKG review. Departure - Departure Disposition: 01 Home, Self Care Clinical Impression: Nausea Condition: Good Instructions: ED Palpitations, ED Nausea Vomiting Follow-Up: Bright Abraham MD [Primary Care Provider] - Within 1 week Prescriptions: Ondansetron Odt [Zofran Odt] 4 mg TL Q6H PRN #14 tablet PRN Reason: Nausea / Vomiting Comments: There were no diagnostic findings on tonight's tests. As we discussed, although there were no findings on your EKG that suggest a current/acute problem, the EKG does have a pattern that would be consistent with a heart attack that has happened sometime in the past. There is a similar finding on the EKG that was performed December 2021 (confirming that this is not a new finding for you). Another abnormality worth noting is your blood sugar was 242 tonight; as high as this is, this is an incidental finding (would likely not explain your symptoms). Is very important that you arrange for next available appointment with your primary care provider for reevaluation of your symptoms, to discuss the EKG finding, and reevaluation of your hyperglycemia. I have electronically submitted a prescription for ondansetron (anti-nausea medication) to the [facility] pharmacy in [place]. Forms: PCP List Discharge Date/Time: 10/05/23 22:32
[2023-10-05 21:21] LABS: BASOPHILS # (AUTO) 0.1 10^3/uL (0.0-0.1); BASOPHILS % (AUTO) 0.7 %; EOSINOPHILS # (AUTO) 0.1 10^3/uL (0.0-0.7); EOSINOPHILS % (AUTO) 0.9 %; HCT - HEMATOCRIT 49.1 % (42.0-52.0); HGB - HEMOGLOBIN 15.7 g/dL (14.0-18.0); LYMPHOCYTES # (AUTO) 2.4 10^3/uL (1.5-3.5); LYMPHOCYTES % (AUTO) 32.6 %; MEAN CORPUSCULAR HEMOGLOBIN 29.5 pg (27.0-31.0); MEAN CORPUSCULAR VOLUME 92.3 fL (80.0-94.0); MEAN PLATELET VOLUME 11.7 fL (7.4-11.4); MONOCYTES # (AUTO) 0.5 10^3/uL (0.0-1.0); MONOCYTES % (AUTO) 7.2 %; NEUTROPHILS # (AUTO) 4.4 10^3/uL (1.5-6.6); NEUTROPHILS % (AUTO) 58.2 %; PLT - PLATELET COUNT 218 10^3/uL (130-450); RED BLOOD COUNT 5.32 10^6/uL (4.70-6.10); RED CELL DISTRIBUTION WIDTH 12.6 % (12.0-15.0); WHITE BLOOD COUNT 7.5 x10^3/uL (4.8-10.8)
[2023-10-05] MEDS ORDERED: ONDANSETRON ODT 4 MG TABLET TL STA (21:36)
[2023-10-05 21:39] LABS: CALCIUM 9.3 mg/dL (8.5-10.3); POTASSIUM 3.8 mmol/L (3.5-4.5)
[2023-10-05 22:42] VITALS: BP 128/88; O2SAT 96
== END 2023-10-05 22:32 | disposition home or self-care (01) ==
LOC: ED 20:25
DX: R00.2 Palpitations (principal); R11.0 Nausea; E11.65 Type 2 diabetes mellitus with hyperglycemia; Z91.148 Patient's other noncompliance with medication regimen for other reason; R94.31 Abnormal electrocardiogram [ECG] [EKG]
CPT/HCPCS: 36415; 80048; 83605; 85025; 93005; 99284; Q0162